=== PATIENT | male | born 1945 | race Caucasian/White ===

== ENCOUNTER → 2016-11-18 | Outpatient (CLI) | payer OTHER | END | disposition home or self-care (01) | LOC: LAB 13:18 | DX: C61 Malignant neoplasm of prostate (principal) ==

== ENCOUNTER → 2017-11-23 | Outpatient (CLI) | payer OTHER ==
[2017-11-23 09:46] LABS: INTERNATIONAL NORM RATIO 1.3 (2.0-3.5)
== END | disposition home or self-care (01) ==
LOC: LAB 08:35
PROVIDERS: Internal Medicine Gastroenterology
DX: Z51.81 Encounter for therapeutic drug level monitoring (principal); Z79.01 Long term (current) use of anticoagulants

== ENCOUNTER 2018-05-16 22:06 | Inpatient (IN) | payer OTHER ==
--- NOTE | ~2018-05-16 | O ---
[place], [place] [facility]AT[id number] #: [id number] ROOM: 531 DOCTOR: DAVID DAVIES MD BIRTHDATE: [birth year] DOS: 05/18/2018 INDICATION FOR PROCEDURE: This is a 73-year-old patient who has presented with lower GI bleed. The patient has been on Coumadin. The patient has been extremely concerned, although his H and H has not dropped much, but has observed blood per stool, has been significant without any gross hemorrhoids. PROCEDURE: Today's procedure part of investigation is colonoscopy. PREMEDICATION: Propofol. SCOPE: Olympus forward-viewing colonoscope 10L video. REPORT: After putting the patient in left lateral position and application of lubricant to the scope, the scope was introduced. Thereafter, under direct visualization, I advanced through the length of colon without difficulty to mid transverse colon. Beyond this level is stool, which is green in color, signifying that there is no right-sided colonic or upper GI bleeding. Scope was withdrawn back to the rectum and reflexed and mucosa carefully washed. There were some clots and evidence of bleeding in the rectum. 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 PLAN AND DISCUSSION: Anucort-HC suppository would be adequate enough. If he is going to be on Coumadin, this is going to be repeated issue regarding bleeding. I have assured him that this is of no significance; however, if he continues with massive bleeding, then he has to be periodically admitted. DAVID DAVIES MD CM:OPRECORD:OPERATIVE NOTE [id number] DAVID DAVIES MD 05/27/18 0731 interface
--- NOTE | ~2018-05-16 | WRIGHTHP ---
[place], [place] PATIENT HISTORY AND PHYSICAL EXAM NAME: BETH GIORDANO [facility] #: [id number] UNIT #: [id number] ROOM: 531 DOCTOR: KHADIJAH HUFF MD BIRTHDATE: [birth year] DOS: 05/17/2018 HISTORY OF PRESENT ILLNESS: The patient is a 73-year-old gentleman with a past medical history of: 1. Morbid obesity. 2. Chronic atrial fibrillation. 3. Type 2 diabetes mellitus. 4. Coronary artery disease and coronary artery bypass grafts. 5. History of sleep apnea. 6. Mixed hyperlipidemia. The patient presented to the Emergency Department with complaints of noticing a lot of blood and fresh blood in the stool. The patient says he has recurrent similar blood in his stools for many years, but not in this big quantity and he generally gets it when he is constipated. The patient was evaluated in the Emergency Department and his hemoglobin was 13.2 as compared to 13.6 yesterday and he was recommended for admission and further management for acute lower GI bleed. Dr. Chaudhari was consulted for management. No recent chest pain, dizziness, fainting episode. No other GI or urinary symptoms. REVIEW OF SYSTEMS: RESPIRATORY: No increasing, shortness of breath or wheezing. GASTROINTESTINAL: The patient noticed fresh blood in the stool. CARDIOVASCULAR: No chest pains or palpitations. FAMILY HISTORY: Noncontributory. SOCIAL HISTORY: Denies smoking cigarettes, alcohol and drug abuse. HOME MEDICATIONS: Insulin, Lipitor, amitriptyline, digoxin, potassium, lisinopril, Coreg, gabapentin, verapamil, glyburide, furosemide, Protonix, Colace, hydrocodone. ALLERGIES: No known drug allergies. PHYSICAL EXAMINATION: GENERAL: Alert and oriented x 3, morbidly obese with a BMI of 47. VITAL SIGNS: Blood pressure 157/61, heart rate 52 beats per minute, breathing 20 times per minute, temperature 98 degrees Fahrenheit. HEENT AND NECK: Extraocular movements are intact. Sclerae are anicteric. Oral mucosa is moist and clean. No obvious facial weakness. Neck is supple without any lymphadenopathy. No thyromegaly. No JVD. No carotid arterial bruits. LUNGS: Clear to auscultation. No wheezing. No rhonchi. CARDIOVASCULAR SYSTEM: Heart rate is regular in rate and rhythm. S1 and S2 normally audible. No significant murmur or any other abnormal cardiac sounds. ABDOMEN: Soft, nontender. No obvious organomegaly. Bowel sounds are present. No obvious herniation. EXTREMITIES: On physical exam, there was also chronic stasis dermatitis and pigmentary changes in both lower extremities and 1+ to 2+ chronic leg and pedal edema. [place], [place] PATIENT HISTORY AND PHYSICAL EXAM [id number] UN[facility] #: [id number] ROOM: 531 DOCTOR: KHADIJAH HUFF MD BIRTHDATE: [birth year] CENTRAL NERVOUS SYSTEM: Alert and oriented x 3. Cranial nerves II-XII are intact. Speech is normal. The patient is able to move all extremities. Normal muscle strength. Deep tendon reflexes are equal on both sides. Plantars were downgoing. LABORATORY DATA: BUN and creatinine 19 and 1.4, albumin level 3, hemoglobin 13.2, normal platelets. IMPRESSION: 1. The patient with acute lower gastrointestinal bleed, possibly hemorrhoidal, but severe. Dr. Chaudhari, the operations consultant has been consulted to evaluate him and hemoglobins will be monitored. 2. Mixed hyperlipidemia, treated with atorvastatin. 3. Type 2 diabetes mellitus. We will monitor blood sugars and treat accordingly. Keep him on no concentrated sweet diet. 4. Chronic atrial fibrillation. The patient's heart rates are controlled with digoxin and the patient anticoagulated with Coumadin. 5. Anticoagulation with Coumadin with INR elevated to 3.2 and acute GI bleed. The patient's Coumadin is going to be put on hold. 6. Benign essential hypertension. Blood pressures are being treated with lisinopril, Coreg and verapamil, which are being continued. 7. Type 2 diabetes mellitus. The patient on glyburide and insulin, which is being continued and blood sugars will be monitored and treated. 8. Morbid obesity. The patient to work with dietary. 9. Mild protein calorie malnutrition. The patient to work with dietary. KHADIJAH HUFF MD CM:HISPHYS:PATIENT HISTORY AND PHYSICAL EXAMINATION 06 36 KHADIJAH HUFF MD 05/17/184 interface
--- NOTE | ~2018-05-16 | PR ---
[place], [place] PROGRESS NOTE NAME: BETH GIORDANO UNIT #: [id number] ROOM: 531 DOCTOR: KHADIJAH HUFF MD BIRTHDATE: [birth year] DOS: 05/19/2018 NO DICTATION KHADIJAH HUFF MD CM:PNTRANS 11 1 KHADIJAH HUFF MD 05/20/18 0501 interface
--- NOTE | ~2018-05-16 | DS ---
[place], [place] DISCHARGE SUMMARY NAME: BETH GIORDANO [facility] #: [id number] UNIT #: [id number] ROOM: 531 DOCTOR: KHADIJAH HUFF MD BIRTHDATE: [birth year] DOS: 05/19/2018 DISCHARGE DIAGNOSES: 1. Acute lower gastrointestinal bleed from radiation proctitis where he had radiation seed placement for treating prostate cancer. 2. The patient is status post colonoscopy. 3. Mixed hyperlipidemia. 4. Type 2 diabetes mellitus. 5. Chronic atrial fibrillation. 6. The patient anticoagulated with Coumadin. 7. Benign essential hypertension. 8. Type 2 diabetes mellitus. 9. Morbid obesity. 10. Mild protein-calorie malnutrition. HOSPITAL COURSE: The patient was admitted and treated for acute lower GI bleed and was found to be bleeding from radiation proctitis where he had prostate radiation seeds placement for prostate cancer in the past. The patient was evaluated with a colonoscopy by Dr. Chaudhari and recommended Anusol-HC suppositories and his hemoglobin has not dropped significantly, so he can be discharged back to home to follow up with his PCP and Dr. Chaudhari as an outpatient. The patient's Coumadin was held back for a few days and will be restarted now. Coumadin in the future will have to be stopped in case the patient starts having clinically significant GI bleeds again. Hemoglobin is stable at 13.1. Type 2 diabetes mellitus. Blood sugars are monitored and treated. Coronary artery disease of nez perce vessels without chest pain. Chronic atrial fibrillation with controlled heart rates. The patient anticoagulated with Coumadin, which is being restarted. The patient to follow with PCP within a week. DISCHARGE MANAGEMENT: Lantus insulin 35 units daily, Lipitor 10 mg a day, amitriptyline 10 mg a day, digoxin 250 mcg daily, Anusol suppositories b.i.d., potassium chloride 10 mEq daily, lisinopril 20 mg a day, gabapentin 600 mg q.i.d., Coreg 6.25 mg b.i.d., verapamil 120 mg b.i.d., furosemide 80 mg a day, glyburide 5 mg b.i.d., Protonix 40 mg b.i.d., Colace 200 mg daily, and Vicodin p.r.n. [place], [place] DISCHARGE SUMMARY NAME: BETH GIORDANO UNIT #: [id number] ROOM: 531 DOCTOR: KHADIJAH HUFF MD BIRTHDATE: [birth year] KHADIJAH HUFF MD CM:ASHWIN [id number] KHADIJAH HUFF MD 05/20/18 0230 interface
--- NOTE | ~2018-05-16 | CON ---
[place], [place] REPORT OF CONSULTATION NAME: BETH GIORDANO UNIT #: [id number] ROOM: 531 DOCTOR: KEKE JANSENDAVID BIRTHDATE: [birth year] DOS: 05/18/2018 GASTROENDOSCOPIC REPORT CHIEF COMPLAINT: Lower gastrointestinal bleed. HISTORY OF PRESENT ILLNESS: The patient is a 73-year-old processed through the Emergency Room and admitted with concerns of GI bleed. The patient has been on Coumadin by history and at the time of admission his H and H was 13 and 40, white blood cell was 5. INR was 3.2. Coumadin has been kept on hold. Glucose 248. INR 1.4. Electrolytes were balanced. Liver function tests normal. CBC differential was repeated in no acute drop; however, the patient concerned about his bleeding status. PAST MEDICAL HISTORY: Associated morbid obesity, coronary artery disease, sleep apnea, stasis dermatitis, venous insufficiency of lower extremity, hyperlipidemia and atrial fibrillation. SOCIAL HISTORY: Nonsmoker, nonalcohol consumer. FAMILY HISTORY: Noncontributory. PAST SURGICAL HISTORY: Triple bypass in 1997. FAMILY HISTORY: Multiple carcinomas, diabetes and coronary artery disease. MEDICATIONS: List has been reviewed. ALLERGIES: No known medications. REVIEW OF SYSTEMS: HEENT: Denies double vision or blurred vision. RESPIRATORY: Denies acute shortness of breath. CARDIOVASCULAR: Denies chest pain. DIGESTIVE SYSTEM: Lower GI bleed. PHYSICAL EXAMINATION: GENERAL: Obese patient. VITAL SIGNS: Stable, no acute distress. HEENT: Head normocephalic, nontraumatic. Mouth and buccal mucosa benign. NECK: Supple, no thyromegaly, no cervical lymphadenopathy. CHEST: Symmetric anatomy, equal expansion. No wheeze, no rhonchi. HEART: Normal sinus rhythm, no gallop, no murmur. ABDOMEN: Obese, large, soft. No hepato-organomegaly. Bowel sounds present. No pulsatile mass. EXTREMITIES: Advanced stasis dermatitis bilaterally, 1+ pedal edema. Scaling of the skin bilaterally is noticed. PLAN AND DISCUSSION: We are going to proceed with a lower endoscopic evaluation before discharge and since this has been his point of concern at the time of [place], [place] REPORT OF CONSULTATION NAME: BETH GIORDANO UNIT #: [id number] ROOM: 531 DOCTOR: KEKE JANSEN,DAVID BIRTHDATE: [birth year] admission. DAVID DAVIES MD CM:CONSTR:REPORT OF CONSULTATION 1457 05/18/18 1546 interface
--- NOTE | ~2018-05-16 | PR ---
[place], [place] PROGRESS NOTE NAME: BETH GIORDANO UNIT #: [id number] ROOM: 531 DOCTOR: REFUGIO JANSEN,KHADIJAH Cornell BIRTHDATE: [birth year] DOS: 05/18/2018 SUBJECTIVE: The patient underwent colonoscopy today, found to have hemorrhoids and started on Anusol-HC suppositories. Dr. Chaudhari is recommending stopping Coumadin because of recurrent GI bleed. Hemoglobin stable at 13.3 today. The patient with radiation proctitis where he had radiation seeds placed for treating prostate cancer. KHADIJAH HUFF MD CM:ISREALTRANS [id number] KHADIJAH HUFF MD 05/19/18 0025 interface
[2018-05-16 22:07] VITALS: BP 112/67
[2018-05-16 23:40] LABS: BASO % 0.7 % (0.0-1.0); EOS # 0.4 10*3/uL (0.0-0.4); EOS % 6.2 % (1.0-4.0); HEMATOCRIT 40.9 % (42.0-52.0); HEMOGLOBIN 13.6 g/dl (14.0-18.0); LYMPH % 16.5 % (27.0-41.0); MEAN CELL VOLUME 94.9 fl (80.0-94.0); MEAN CORPUSCULAR HGB 31.6 pg (27.0-31.0); MEAN CORPUSCULAR HGB CONC 33.3 g/dl (33.0-37.0); MEAN PLATELET VOLUME 9.7 fl (9.6-12.3); MONO # 0.8 10*3/uL (0.1-1.0); MONO % 13.5 % (3.0-9.0); NEUT # 3.7 10*3/uL (2.3-7.9); NEUT % 62.8 % (47.0-73.0); PLATELET COUNT AUTOMATED 181 10*3/uL (130-400); RED BLOOD COUNT 4.31 10*6/uL (4.50-5.90); RED CELL DISTRI WIDTH 12.9 % (0-14.5); WHITE BLOOD COUNT 5.9 10*3/uL (4.8-10.8)
[2018-05-16 23:50] LABS: INTERNATIONAL NORM RATIO 3.2 (2.0-3.5)
[2018-05-16 23:57] LABS: ALKALINE PHOSPHATASE 78 U/L (45-117); BUN 19 mg/dl (7-24); CHLORIDE 102 mmol/L (98-107); CREATININE 1.38 mg/dL (0.70-1.30); POTASSIUM 4.7 mmol/L (3.5-5.1); SGOT/AST 17 IU/L (3-35); SGPT/ALT 21 U/L (12-78); SODIUM 137 mmol/L (136-145); TOTAL PROTEIN 7.1 gm/dL (6.4-8.2)
[2018-05-17 02:40] VITALS: BP 164/76
--- NOTE | 2018-05-17 02:40 | NUR ---
A 73, admitted to 5E, under the services of Dr. REFUGIO JANSEN,KHADIJAH Cornell with a diagnosis of RECTAL BLEED. Chief complaint is RECTAL BLEEDING. Patient arrived via ambulatory from ER. Monitor applied. Initial assessment completed. Vital signs taken and recorded. DR. REFUGIO JANSEN,KHADIJAH Cornell notified of admission to the unit. Orders received. See assessment for past medical history, medications and allergies. Patient and/or family oriented to unit. visitation policy reviewed. Clothing/patient valuable form completed. ARMANI BONE
[2018-05-17] MEDS ORDERED: NORCO 7.5-3251 EACH PO (04:02)
[2018-05-17] MEDS ORDERED: LASIX80 MG PO (04:03)
[2018-05-17] MEDS ORDERED: GLYBURIDE5 MG PO (04:03)
[2018-05-17] MEDS ORDERED: DIGOX250 MCG PO (04:03)
[2018-05-17] MEDS ORDERED: COREG6.25 MG PO (04:04)
[2018-05-17] MEDS ORDERED: VERAPAMIL HCL120 MG PO (04:04)
[2018-05-17] MEDS ORDERED: PROTONIX40 MG PO (04:05)
[2018-05-17] MEDS ORDERED: NEURONTIN600 MG PO (04:06)
[2018-05-17] MEDS ORDERED: JANTOVEN4 M1 PO (04:06)
[2018-05-17] MEDS ORDERED: COLACE100 MG PO (04:07)
[2018-05-17] MEDS ORDERED: LISINOPRIL20 MG PO (04:07)
[2018-05-17] MEDS ORDERED: AMITRIPTYLINE H10 M1 PO (04:08)
[2018-05-17] MEDS ORDERED: POTASSIUM CHLO10 MEQ PO (04:08)
[2018-05-17] MEDS ORDERED: LOVASTATIN40 MG PO (04:09)
--- NOTE | 2018-05-17 06:15 | NUR ---
DR. DAVIES NOTIFIED OF CONSULT FOR PATIENT FOR RECTAL BLEED. NEW ORDER FOR ANUSOL HC SUPPOSITORY Q DAY AND REPEAT H&H TOMORROW. MAY FEED PATIENT.
[2018-05-17 06:27] LABS: BASO # 0.1 10*3/uL (0.0-0.1); BASO % 1.1 % (0.0-1.0); EOS # 0.4 10*3/uL (0.0-0.4); EOS % 6.9 % (1.0-4.0); HEMATOCRIT 40.7 % (42.0-52.0); HEMOGLOBIN 13.2 g/dl (14.0-18.0); LYMPH # 1.3 10*3/uL (1.3-4.4); LYMPH % 23.4 % (27.0-41.0); MEAN CELL VOLUME 94.9 fl (80.0-94.0); MEAN CORPUSCULAR HGB 30.8 pg (27.0-31.0); MEAN CORPUSCULAR HGB CONC 32.4 g/dl (33.0-37.0); MONO # 0.8 10*3/uL (0.1-1.0); MONO % 14.8 % (3.0-9.0); NEUT # 3.1 10*3/uL (2.3-7.9); NEUT % 53.6 % (47.0-73.0); PLATELET COUNT AUTOMATED 197 10*3/uL (130-400); RED BLOOD COUNT 4.29 10*6/uL (4.50-5.90); RED CELL DISTRI WIDTH 13.1 % (0-14.5); WHITE BLOOD COUNT 5.7 10*3/uL (4.8-10.8)
[2018-05-17 08:00] VITALS: BP 156/82
[2018-05-17] MEDS ORDERED: LEVEMIR100 UNIT/1 SQ ×2 (11:30→11:32)
[2018-05-17 12:00] VITALS: BP 133/51
[2018-05-17 16:00] VITALS: BP 157/61
[2018-05-17 20:00] VITALS: BP 174/77
[2018-05-18] VITALS (9 sets, daily range): BP systolic 128–168; BP diastolic 56–74
--- NOTE | 2018-05-18 01:22 | NUR ---
NORCO GIVEN PER REQUEST FOR C/O LT KNEE, NECK AND BACK PAIN. BED IN LOW, LOCKED POS, CALL LIGTH IN REACH. WILL MONITOR MEDICATION EFFECTIVENESS.
[2018-05-18 06:40] LABS: BASO # 0.1 10*3/uL (0.0-0.1); BASO % 1.2 % (0.0-1.0); EOS # 0.4 10*3/uL (0.0-0.4); EOS % 7.1 % (1.0-4.0); HEMATOCRIT 40.2 % (42.0-52.0); HEMOGLOBIN 13.3 g/dl (14.0-18.0); LYMPH # 1.3 10*3/uL (1.3-4.4); LYMPH % 26.5 % (27.0-41.0); MEAN CELL VOLUME 95.3 fl (80.0-94.0); MEAN CORPUSCULAR HGB 31.5 pg (27.0-31.0); MEAN CORPUSCULAR HGB CONC 33.1 g/dl (33.0-37.0); MEAN PLATELET VOLUME 9.9 fl (9.6-12.3); MONO # 0.7 10*3/uL (0.1-1.0); MONO % 13.9 % (3.0-9.0); NEUT # 2.6 10*3/uL (2.3-7.9); NEUT % 51.3 % (47.0-73.0); PLATELET COUNT AUTOMATED 198 10*3/uL (130-400); RED BLOOD COUNT 4.22 10*6/uL (4.50-5.90); RED CELL DISTRI WIDTH 12.9 % (0-14.5); WHITE BLOOD COUNT 5.1 10*3/uL (4.8-10.8)
--- NOTE | 2018-05-18 07:42 | NUR ---
INFORMED OF MORNING LAB. STATED COLONSCOPT TODAY, ENEMA AT 1000
--- NOTE | 2018-05-18 09:00 | NUR ---
[employer] in to talk to patient. Patient states lives at home with his daughter. There are 9-10 steps in the home. Physician: Dr. Doris Baig Pharmacy: [facility] Home health services: none Patient's level of ADLs: INDEPENDENT Patient has working utilities: yes DME: c-pap Follow-up physician's appointment after d/c: he prefers to make his own follow up appt after discharge Does patient want to access PORTAL?: no Discharge plan discussed with patient. He lives at home with his daughter. He is independent in his ADLs and ambulation. Discussed home health care services and he denies any home needs at this time. When medically stable he will be discharged to home. ELBA LANDRUM
--- NOTE | 2018-05-18 10:15 | NUR ---
TAP WATER ENEMA COMPLETED AT THIS TIME, BM ARE CLEARS LIQUID WITH HINT OF RED. PATIENT TOLERATED WELL.
--- NOTE | 2018-05-18 15:09 | NUR ---
STATED TO CONTINUE ANUCORT HC SUPP DAILY, AND PLACE REGULAR DIET.
--- NOTE | 2018-05-18 19:26 | NUR ---
PATIENT RESTING IN RECLINER WITH VISITOR AT BED SIDE. DENIES ANY NEEDS OR COMPLAINTS AT THIS TIME. CALL LIGHT IS WITHIN REACH. ENCOURAGED TO USE CALL LIGHT FOR NEEDS. WILL MONITOR.
--- NOTE | 2018-05-18 21:34 | NUR ---
SPOKE WITH DR HUFF REGARDING BGM OF 347. NO SLIDING SCALE. PER DR HUFF ORDER SLIDING SCALE QID AND COVER WITH REGULAR INSULIN. NO OTHER ORDERS AT THIS TIME.
[2018-05-19] VITALS: BP 149/74
--- NOTE | 2018-05-19 02:23 | NUR ---
PATIENT RESTING IN BED WITH CPAP IN PLACE. RESPIRATIONS ARE EASY AND REGULAR. NO DISTRESS IS NOTED. CALL LIGHT IS WITHIN REACH. WILL MONITOR.
[2018-05-19 07:03] LABS: BASO % 0.8 % (0.0-1.0); EOS # 0.4 10*3/uL (0.0-0.4); EOS % 7.2 % (1.0-4.0); HEMATOCRIT 38.8 % (42.0-52.0); HEMOGLOBIN 13.1 g/dl (14.0-18.0); LYMPH # 1.7 10*3/uL (1.3-4.4); LYMPH % 32.9 % (27.0-41.0); MEAN CELL VOLUME 93.9 fl (80.0-94.0); MEAN CORPUSCULAR HGB 31.7 pg (27.0-31.0); MEAN CORPUSCULAR HGB CONC 33.8 g/dl (33.0-37.0); MEAN PLATELET VOLUME 9.6 fl (9.6-12.3); MONO # 0.6 10*3/uL (0.1-1.0); MONO % 10.9 % (3.0-9.0); NEUT # 2.5 10*3/uL (2.3-7.9); NEUT % 47.8 % (47.0-73.0); PLATELET COUNT AUTOMATED 189 10*3/uL (130-400); RED BLOOD COUNT 4.13 10*6/uL (4.50-5.90); RED CELL DISTRI WIDTH 12.9 % (0-14.5); WHITE BLOOD COUNT 5.2 10*3/uL (4.8-10.8)
--- NOTE | 2018-05-19 07:20 | NUR ---
BEDSIDE REPORT OBTAINED FROM QUINTEN. PATIENT APPEARS TO BE ASLEEP, EYES CLOSED. NO S&S OF DISTRESS NOTED, RESP ARE ERND ON ROOM AIR. BED IS LOCKED IN LOWEST POSITION, CALL LIGHT LEFT WITHIN REACH.
[2018-05-19 08:00] VITALS: BP 118/62
[2018-05-19 12:00] VITALS: BP 116/56
[2018-05-19 16:00] VITALS: BP 139/59
[2018-05-19 20:00] VITALS: BP 142/55
--- NOTE | 2018-05-19 20:00 | NUR ---
SITTING IN RECLINER WITH NO ACUTE DISTRESS NOTED. RESPIRATIONS EASY. LUNGS DIMINISHED, CLEAR. ROOM AIR, DENIES SOB. ABD SOFT WITH NORMOACTIVE BOWEL SOUNDS, DENIES ACTIVE BLEED. BLE NOTED TO BE DISCOLORED AND EDEMATOUS. CALL LIGHT WITHIN REACH. NO VOICED COMPLAINTS
--- NOTE | 2018-05-19 20:40 | NUR ---
24 HR chart check completed.
--- NOTE | 2018-05-19 20:45 | NUR ---
DR HUFF HERE TO SEE PATIENT AND DISCUSS PLAN OF CARE
[2018-05-19] MEDS ORDERED: Anusol Hc,Anuco25 MG R (21:14)
--- NOTE | 2018-05-19 21:40 | NUR ---
spoke with dr lopez regarding d/c. ok for d/c from dr fuentes standpoint
--- NOTE | 2018-05-19 22:05 | NUR ---
DR HUFF INFORMED DR KEKE GUTIERREZ WITH D/C
--- NOTE | 2018-05-19 22:40 | NUR ---
Discharge instructions reviewed with patient/family. Patient receptive and verbalizes understanding. Written instructions given to patient/family. PATIENT OFFERED WC FOR D/C DECLINED. AMBULATED OFF FLOOR. NASH BECERRA
== END 2018-05-19 22:40 | disposition home or self-care (01) | DRG 394 ==
LOC: ED 22:06 → EDHOLD 05-17 01:33 → 5E 05-17 01:33
PROVIDERS: Emergency Medicine; ADMIT Internal Medicine
PROC: 0DJD8ZZ Inspection of Lower Intestinal Tract, Via Natural or Artificial Opening Endoscopic (ICD-10-PCS; principal; 2018-05-18)
DX: K62.7 Radiation proctitis (principal); E44.1 Mild protein-calorie malnutrition; Z68.42 Body mass index [BMI] 45.0-49.9, adult; C61 Malignant neoplasm of prostate; E78.2 Mixed hyperlipidemia; I48.2 Chronic atrial fibrillation; I10 Essential (primary) hypertension; G47.30 Sleep apnea, unspecified; I25.10 Atherosclerotic heart disease of native coronary artery without angina pectoris; K64.9 Unspecified hemorrhoids; E11.9 Type 2 diabetes mellitus without complications; E66.01 Morbid (severe) obesity due to excess calories; Z79.01 Long term (current) use of anticoagulants; Z83.3 Family history of diabetes mellitus; Z82.49 Family history of ischemic heart disease and other diseases of the circulatory system; Z80.9 Family history of malignant neoplasm, unspecified; Z95.1 Presence of aortocoronary bypass graft

== ENCOUNTER → 2020-07-31 | Outpatient (CLI) | payer OTHER ==
[~2020-07-31] MED LIST: AMITRIPTYLINE H10 M1 PO; Anusol Hc,Anuco25 MG R; COLACE100 MG PO; COREG12.5 M1 PO; DIGOX250 MCG PO; GLYBURIDE5 MG PO; JANTOVEN4 M1 PO; JARDIANCE25 MG PO; LASIX80 MG PO; LEVEMIR100 UNIT/1 SQ; LISINOPRIL40 MG PO; LOVASTATIN40 MG PO; NEURONTIN600 MG PO; NORCO 7.5-3251 EACH PO; POTASSIUM CHLO10 MEQ PO; PROTONIX40 MG PO; ROPINIROLE HCL2 MG PO; TRAZODONE50 MG PO; VERAPAMIL HCL120 MG PO
== END | disposition home or self-care (01) ==
LOC: CARD
PROVIDERS: ATTEND Internal Medicine
DX: I08.0 Rheumatic disorders of both mitral and aortic valves (principal); I48.20 Chronic atrial fibrillation, unspecified

== ENCOUNTER → 2020-08-24 | Outpatient (CLI) | payer OTHER | END | disposition home or self-care (01) | LOC: CARD 00:02 | PROVIDERS: ATTEND Internal Medicine | DX: I51.7 Cardiomegaly (principal); I48.91 Unspecified atrial fibrillation; I45.10 Unspecified right bundle-branch block; I51.89 Other ill-defined heart diseases ==

== ENCOUNTER → 2020-12-19 | Outpatient (CLI) | payer OTHER | END | disposition home or self-care (01) | LOC: US 12-12 13:30 | PROVIDERS: ATTEND Internal Medicine | DX: I73.9 Peripheral vascular disease, unspecified (principal) ==

== ENCOUNTER → 2021-02-12 | Outpatient (CLI) | payer OTHER | END | disposition home or self-care (01) | LOC: COVID19 17:04 | PROVIDERS: ATTEND Internal Medicine | DX: Z11.52 Encounter for screening for COVID-19 (principal) ==

== ENCOUNTER → 2021-10-26 | Outpatient (CLI) | payer OTHER | END | disposition home or self-care (01) | LOC: US 08:54 → MRI 10:00 | PROVIDERS: ATTEND Internal Medicine | DX: I65.29 Occlusion and stenosis of unspecified carotid artery (principal); R42 Dizziness and giddiness; R41.3 Other amnesia ==

== ENCOUNTER 2022-05-15 18:13 | Emergency (ER) | payer OTHER ==
[~2022-05-15] VITALS: Ht 185.4 cm; Wt 125.2 kg
[~2022-05-15 18:13] MED LIST changes: +ARICEPT5 M1 PO; +Bactroban Oint22 GM T; +CLOPIDOGREL75 MG PO; +LEVOFLOXACIN500 MG PO; +SINEMET 10-1001 EACH PO
[2022-05-15 19:51] VITALS: BP 134/83
[2022-05-15] MEDS ORDERED: LEVEMIR100 UNIT/1 SC (19:55)
[2022-05-15] MEDS ORDERED: Lasix80 MG PO (19:56)
[2022-05-15 21:01] LABS: BASO # 0.1 10*3/uL (0.0-0.1); BASO % 0.7 % (0.0-1.0); EOS # 0.2 10*3/uL (0.0-0.4); EOS % 2.4 % (1.0-4.0); HEMATOCRIT 44.6 % (42.0-52.0); LYMPH # 1.2 10*3/uL (1.3-4.4); MEAN CELL VOLUME 92.3 fl (80.0-94.0); MEAN CORPUSCULAR HGB 31.1 pg (27.0-31.0); MEAN CORPUSCULAR HGB CONC 33.6 g/dl (33.0-37.0); MEAN PLATELET VOLUME 9.7 fl (9.6-12.3); MONO # 0.7 10*3/uL (0.1-1.0); NEUT # 5.1 10*3/uL (2.3-7.9); NEUT % 70.6 % (47.0-73.0); PLATELET COUNT AUTOMATED 202 10*3/uL (130-400); RED BLOOD COUNT 4.83 10*6/uL (4.50-5.90); WHITE BLOOD COUNT 7.2 10*3/uL (4.8-10.8)
[2022-05-15 21:20] LABS: ALKALINE PHOSPHATASE 69 U/L (46-116); BUN 26 mg/dl (9-23); CHLORIDE 96 mmol/L (98-107); CREATININE 1.35 mg/dL (0.70-1.30); POTASSIUM 4.2 mmol/L (3.4-5.1); SGPT/ALT 15 U/L (10-49); TOTAL PROTEIN 7.1 gm/dL (6.0-8.0)
== END 2022-05-15 22:10 | disposition home or self-care (01) ==
LOC: ED 18:13
PROVIDERS: Physician Assistant
DX: S90.821A Blister (nonthermal), right foot, initial encounter (principal); E11.9 Type 2 diabetes mellitus without complications; Z79.899 Other long term (current) drug therapy; Z90.49 Acquired absence of other specified parts of digestive tract; X58.XXXA Exposure to other specified factors, initial encounter; Y93.89 Activity, other specified; Y92.89 Other specified places as the place of occurrence of the external cause; Y99.8 Other external cause status

== ENCOUNTER → 2022-06-19 | Day surgery (SDC) | payer OTHER ==
[~2022-06-19] VITALS: Ht 165.1 cm; Wt 123.8 kg
[~2022-06-19] MED LIST changes: +AMOX-CLAV 875-1 EACH PO; +APRESOLINE25 MG PO; +LEVEMIR100 UNIT/1 SC; +Lasix80 MG PO
[2022-06-19 08:10] VITALS: BP 174/60
[2022-06-19 09:06] VITALS: BP 159/61
[2022-06-19 09:21] VITALS: BP 156/63
[2022-06-19 09:36] VITALS: BP 149/59
== END | disposition home or self-care (01) ==
LOC: SDC 05-17 11:00
PROVIDERS: ATTEND Ophthalmology
DX: E11.36 Type 2 diabetes mellitus with diabetic cataract (principal); H25.811 Combined forms of age-related cataract, right eye; I11.0 Hypertensive heart disease with heart failure; I50.9 Heart failure, unspecified; K21.9 Gastro-esophageal reflux disease without esophagitis; I48.91 Unspecified atrial fibrillation; I25.2 Old myocardial infarction; I25.10 Atherosclerotic heart disease of native coronary artery without angina pectoris; Z85.46 Personal history of malignant neoplasm of prostate; Z95.1 Presence of aortocoronary bypass graft; Z87.891 Personal history of nicotine dependence; Z98.890 Other specified postprocedural states

== ENCOUNTER → 2022-09-18 | Day surgery (SDC) | payer OTHER ==
[~2022-09-18] VITALS: Ht 165.1 cm; Wt 123.8 kg
[2022-09-18 09:59] VITALS: BP 168/64
[2022-09-18 11:35] VITALS: BP 137/55
[2022-09-18 11:50] VITALS: BP 111/61
[2022-09-18 12:04] VITALS: BP 148/83
== END | disposition home or self-care (01) ==
LOC: SDC 09-13 13:15
PROVIDERS: ATTEND Ophthalmology
DX: E11.36 Type 2 diabetes mellitus with diabetic cataract (principal); H25.812 Combined forms of age-related cataract, left eye; I11.0 Hypertensive heart disease with heart failure; I50.9 Heart failure, unspecified; K21.9 Gastro-esophageal reflux disease without esophagitis; Z95.1 Presence of aortocoronary bypass graft; Z85.46 Personal history of malignant neoplasm of prostate; I25.2 Old myocardial infarction; I25.10 Atherosclerotic heart disease of native coronary artery without angina pectoris; I48.91 Unspecified atrial fibrillation; Z87.891 Personal history of nicotine dependence; Z79.899 Other long term (current) drug therapy; Z98.890 Other specified postprocedural states

== ENCOUNTER → 2023-02-17 | Outpatient (CLI) | payer OTHER | END | disposition home or self-care (01) | LOC: CARD 09:05 | PROVIDERS: ATTEND Internal Medicine | DX: I08.2 Rheumatic disorders of both aortic and tricuspid valves (principal) ==

== ENCOUNTER → 2023-10-02 | Outpatient (CLI) | payer OTHER ==
[2023-10-02 11:52] LABS: BASO # 0.1 10*3/uL (0.0-0.1); BASO % 1.2 % (0.0-1.0); EOS # 0.2 10*3/uL (0.0-0.4); EOS % 2.7 % (1.0-4.0); HEMATOCRIT 43.2 % (42.0-52.0); LYMPH # 1.2 10*3/uL (1.3-4.4); LYMPH % 17.5 % (27.0-41.0); MEAN CELL VOLUME 93.7 fl (80.0-94.0); MEAN CORPUSCULAR HGB 31.5 pg (27.0-31.0); MEAN CORPUSCULAR HGB CONC 33.6 g/dl (33.0-37.0); MEAN PLATELET VOLUME 9.8 fl (9.6-12.3); MONO # 0.6 10*3/uL (0.1-1.0); MONO % 9.1 % (3.0-9.0); NEUT # 4.7 10*3/uL (2.3-7.9); NEUT % 69.4 % (47.0-73.0); PLATELET COUNT AUTOMATED 248 10*3/uL (130-400); RED BLOOD COUNT 4.61 10*6/uL (4.50-5.90); RED CELL DISTRI WIDTH 11.8 % (0-14.5); WHITE BLOOD COUNT 6.7 10*3/uL (4.8-10.8)
[2023-10-02 12:29] LABS: ALKALINE PHOSPHATASE 89 U/L (46-116); BUN 13 mg/dl (9-23); CHLORIDE 98 mmol/L (98-107); CHOLESTEROL 130 mg/dL (<200); FREE T4 1.13 ng/dl (0.89-1.76); LDL CHOLESTEROL 64 mg/dL (9-159); POTASSIUM 4.1 mmol/L (3.4-5.1); SGPT/ALT 14 U/L (5-49); TRIGLYCERIDES 194 mg/dl (<150)
[2023-10-02 12:31] LABS: VITAMIN D, 25-HYDROXY 63.7 ng/mL (30-100)
== END | disposition home or self-care (01) ==
LOC: LAB 11:26
PROVIDERS: ATTEND Internal Medicine
DX: Z13.220 Encounter for screening for lipoid disorders (principal); Z13.228 Encounter for screening for other metabolic disorders; Z13.29 Encounter for screening for other suspected endocrine disorder; Z13.6 Encounter for screening for cardiovascular disorders; Z13.89 Encounter for screening for other disorder; Z13.9 Encounter for screening, unspecified; I10 Essential (primary) hypertension; E11.43 Type 2 diabetes mellitus with diabetic autonomic (poly)neuropathy; L03.115 Cellulitis of right lower limb

== ENCOUNTER 2023-10-16 15:34 | Emergency (ER) | payer OTHER ==
[~2023-10-16] VITALS: Ht 175.2 cm; Wt 130.2 kg
[2023-10-16 15:48] VITALS: BP 133/70
[2023-10-16 16:14] LABS: BASO # 0.1 10*3/uL (0.0-0.1); BASO % 0.8 % (0.0-1.0); EOS # 0.2 10*3/uL (0.0-0.4); EOS % 2.6 % (1.0-4.0); HEMATOCRIT 42.4 % (42.0-52.0); LYMPH # 1.3 10*3/uL (1.3-4.4); LYMPH % 19.6 % (27.0-41.0); MEAN CORPUSCULAR HGB 31.4 pg (27.0-31.0); MEAN CORPUSCULAR HGB CONC 33.7 g/dl (33.0-37.0); MONO # 0.6 10*3/uL (0.1-1.0); MONO % 8.6 % (3.0-9.0); NEUT # 4.4 10*3/uL (2.3-7.9); NEUT % 68.2 % (47.0-73.0); PLATELET COUNT AUTOMATED 213 10*3/uL (130-400); RED BLOOD COUNT 4.56 10*6/uL (4.50-5.90); RED CELL DISTRI WIDTH 11.9 % (0-14.5); WHITE BLOOD COUNT 6.5 10*3/uL (4.8-10.8)
[2023-10-16] MEDS ORDERED: IOHEXOL 300 MG/ML 100 ML VIAL IV ONE (16:30)
[2023-10-16 16:40] LABS: BUN 12 mg/dl (9-23); CHLORIDE 95 mmol/L (98-107); POTASSIUM 3.5 mmol/L (3.4-5.1)
[2023-10-16] MEDS ORDERED: INSULIN REGULAR, HUMAN 1 UNIT/0.01 ML SC ONE (16:50)
[2023-10-16] MEDS ORDERED: VIBRAMYCIN100 MG PO (18:25)
== END 2023-10-16 18:27 | disposition home or self-care (01) ==
LOC: ED 15:34
PROVIDERS: Physician Assistant Medical
DX: K62.6 Ulcer of anus and rectum (principal); E11.9 Type 2 diabetes mellitus without complications; Z79.4 Long term (current) use of insulin; I11.0 Hypertensive heart disease with heart failure; I50.9 Heart failure, unspecified; I25.2 Old myocardial infarction; K21.9 Gastro-esophageal reflux disease without esophagitis; I48.91 Unspecified atrial fibrillation; Z90.49 Acquired absence of other specified parts of digestive tract; Z98.890 Other specified postprocedural states

== ENCOUNTER 2023-10-27 12:22 | Emergency (ER) | payer OTHER ==
[~2023-10-27] VITALS: Ht 170.1 cm; Wt 109.8 kg
[~2023-10-27 12:22] MED LIST changes: +VIBRAMYCIN100 MG PO
[2023-10-27 12:42] VITALS: BP 150/72
[2023-10-27] MEDS ORDERED: VIBRAMYCIN100 MG PO (16:03)
== END 2023-10-27 16:50 | disposition home or self-care (01) ==
LOC: ED 12:22
DX: K62.6 Ulcer of anus and rectum (principal); E11.9 Type 2 diabetes mellitus without complications; Z79.4 Long term (current) use of insulin; I11.0 Hypertensive heart disease with heart failure; I50.9 Heart failure, unspecified; I25.2 Old myocardial infarction; I48.91 Unspecified atrial fibrillation; K21.9 Gastro-esophageal reflux disease without esophagitis; Z98.890 Other specified postprocedural states; Z90.49 Acquired absence of other specified parts of digestive tract; W19.XXXA Unspecified fall, initial encounter

== ENCOUNTER → 2023-12-19 | Outpatient (CLI) | payer OTHER | END | disposition home or self-care (01) | LOC: MRI 12-12 10:00 | PROVIDERS: ATTEND Internal Medicine | DX: G93.89 Other specified disorders of brain (principal); R42 Dizziness and giddiness ==

== ENCOUNTER → 2024-01-23 | Outpatient (CLI) | payer OTHER ==
[~2024-01-23] MED LIST changes: +Technetium Tc 99M Medronate 1 KIT KIT IV SCH
== END | disposition home or self-care (01) ==
LOC: NM 01-21 10:00
PROVIDERS: ATTEND Internal Medicine
DX: M54.50 Low back pain, unspecified (principal); M47.819 Spondylosis without myelopathy or radiculopathy, site unspecified; M17.0 Bilateral primary osteoarthritis of knee

== ENCOUNTER → 2024-02-09 | Outpatient (CLI) | payer OTHER ==
[~2024-02-09] MED LIST changes: -Technetium Tc 99M Medronate 1 KIT KIT IV SCH
== END | disposition home or self-care (01) ==
LOC: WOUNDCARE 03:58
PROVIDERS: ATTEND Nurse Practitioner Family
DX: E11.621 Type 2 diabetes mellitus with foot ulcer (principal); L97.511 Non-pressure chronic ulcer of other part of right foot limited to breakdown of skin; L97.521 Non-pressure chronic ulcer of other part of left foot limited to breakdown of skin; E11.51 Type 2 diabetes mellitus with diabetic peripheral angiopathy without gangrene; I87.2 Venous insufficiency (chronic) (peripheral); I10 Essential (primary) hypertension; F17.210 Nicotine dependence, cigarettes, uncomplicated; Z90.49 Acquired absence of other specified parts of digestive tract

== ENCOUNTER 2024-02-14 17:10 | Emergency (ER) | payer OTHER ==
[~2024-02-14] VITALS: Ht 167.6 cm; Wt 95.3 kg
[2024-02-14 17:18] VITALS: BP 138/62
[2024-02-14] MEDS ORDERED: SODIUM CHLORIDE 0.9% 1,000 ML IV ONE (17:20)
[2024-02-14] MEDS ORDERED: MORPHINE Sulfate 2 MG/ML SYR IV ONE (17:20)
[2024-02-14] MEDS ORDERED: Ondansetron Hydrochloride 4 MG/2 ML VIAL IV ONE ×2 (17:20→18:10)
[2024-02-14 17:32] LABS: BASO # 0.1 10*3/uL (0.0-0.1); BASO % 0.6 % (0.0-1.0); EOS # 0.1 10*3/uL (0.0-0.4); EOS % 0.6 % (1.0-4.0); HEMATOCRIT 41.1 % (42.0-52.0); LYMPH # 1.5 10*3/uL (1.3-4.4); LYMPH % 12.7 % (27.0-41.0); MEAN CELL VOLUME 91.5 fl (80.0-94.0); MEAN CORPUSCULAR HGB 30.7 pg (27.0-31.0); MEAN CORPUSCULAR HGB CONC 33.6 g/dl (33.0-37.0); MEAN PLATELET VOLUME 9.6 fl (9.6-12.3); MONO % 8.2 % (3.0-9.0); NEUT # 9.4 10*3/uL (2.3-7.9); NEUT % 77.4 % (47.0-73.0); PLATELET COUNT AUTOMATED 219 10*3/uL (130-400); RED BLOOD COUNT 4.49 10*6/uL (4.50-5.90); RED CELL DISTRI WIDTH 12.5 % (0-14.5); WHITE BLOOD COUNT 12.1 10*3/uL (4.8-10.8)
[2024-02-14 17:46] LABS: BUN 17 mg/dl (9-23); CHLORIDE 94 mmol/L (98-107); POTASSIUM 3.7 mmol/L (3.4-5.1)
[2024-02-14] MEDS ORDERED: HYDROmorphONE Hydrochloride 1 MG/ML SYR IV ONE (18:10)
[2024-02-14] MEDS ORDERED: TRAMADOL HCL50 MG PO (18:10)
== END 2024-02-14 19:15 | disposition home or self-care (01) ==
LOC: ED 17:10
PROVIDERS: Emergency Medicine
DX: E11.40 Type 2 diabetes mellitus with diabetic neuropathy, unspecified (principal); E78.5 Hyperlipidemia, unspecified; I25.2 Old myocardial infarction; I50.9 Heart failure, unspecified; I11.0 Hypertensive heart disease with heart failure; I48.91 Unspecified atrial fibrillation; K21.9 Gastro-esophageal reflux disease without esophagitis; Z90.49 Acquired absence of other specified parts of digestive tract; Z98.890 Other specified postprocedural states

== ENCOUNTER → 2024-02-24 | Outpatient (CLI) | payer OTHER ==
[~2024-02-24] MED LIST changes: +TRAMADOL HCL50 MG PO
== END | disposition home or self-care (01) ==
LOC: WOUNDCARE 00:59
PROVIDERS: ATTEND Nurse Practitioner Family
DX: E11.621 Type 2 diabetes mellitus with foot ulcer (principal); I83.025 Varicose veins of left lower extremity with ulcer other part of foot; I83.015 Varicose veins of right lower extremity with ulcer other part of foot; L97.821 Non-pressure chronic ulcer of other part of left lower leg limited to breakdown of skin; L97.811 Non-pressure chronic ulcer of other part of right lower leg limited to breakdown of skin; S80.811A Abrasion, right lower leg, initial encounter; R60.9 Edema, unspecified; E11.42 Type 2 diabetes mellitus with diabetic polyneuropathy; I10 Essential (primary) hypertension; I73.9 Peripheral vascular disease, unspecified; I87.2 Venous insufficiency (chronic) (peripheral); Z90.49 Acquired absence of other specified parts of digestive tract; X58.XXXA Exposure to other specified factors, initial encounter; Y93.89 Activity, other specified; Y92.89 Other specified places as the place of occurrence of the external cause; Y99.8 Other external cause status

== ENCOUNTER → 2024-03-05 | Outpatient (CLI) | payer OTHER | END | disposition home or self-care (01) | LOC: WOUNDCARE 03:28 | PROVIDERS: ATTEND Nurse Practitioner Family | DX: E11.621 Type 2 diabetes mellitus with foot ulcer (principal); I83.015 Varicose veins of right lower extremity with ulcer other part of foot; L97.511 Non-pressure chronic ulcer of other part of right foot limited to breakdown of skin; I83.025 Varicose veins of left lower extremity with ulcer other part of foot; L97.521 Non-pressure chronic ulcer of other part of left foot limited to breakdown of skin; S80.811D Abrasion, right lower leg, subsequent encounter; E11.42 Type 2 diabetes mellitus with diabetic polyneuropathy; E11.51 Type 2 diabetes mellitus with diabetic peripheral angiopathy without gangrene; I10 Essential (primary) hypertension; I87.2 Venous insufficiency (chronic) (peripheral); R60.9 Edema, unspecified; F17.290 Nicotine dependence, other tobacco product, uncomplicated; Z90.49 Acquired absence of other specified parts of digestive tract; X58.XXXD Exposure to other specified factors, subsequent encounter ==

== ENCOUNTER 2024-03-28 06:04 | Observation (INO) | payer OTHER ==
[~2024-03-28] VITALS: Ht 167.6 cm; Wt 118.5 kg
[~2024-03-28 06:04] MED LIST changes: -LISINOPRIL40 MG PO; +ZESTRIL10 MG PO
[2024-03-28 06:12] VITALS: BP 178/77
[2024-03-28] MEDS ORDERED: ELIQUIS5 M1 PO (06:13)
[2024-03-28] MEDS ORDERED: NOVOLOG MI100 UNIT/1 SQ (06:26)
[2024-03-28] MEDS ORDERED: APRESOLINE25 MG PO (06:27)
[2024-03-28] MEDS ORDERED: OXYCODONE-ACET1 EACH PO (06:30)
[2024-03-28] MEDS ORDERED: OZEMPIC0.25 MG/03 SQ (06:31)
[2024-03-28] MEDS ORDERED: Mysoline50 MG PO (06:32)
[2024-03-28] MEDS ORDERED: CARVEDILOL12.5 MG PO (06:34)
[2024-03-28] MEDS ORDERED: HUMALOG100 UNIT/1 SC (06:35)
[2024-03-28 06:40] LABS: BASO # 0.1 10*3/uL (0.0-0.1); BASO % 0.8 % (0.0-1.0); EOS # 0.3 10*3/uL (0.0-0.4); HEMATOCRIT 41.6 % (42.0-52.0); MEAN CELL VOLUME 90.6 fl (80.0-94.0); MEAN CORPUSCULAR HGB 30.5 pg (27.0-31.0); MEAN CORPUSCULAR HGB CONC 33.7 g/dl (33.0-37.0); MEAN PLATELET VOLUME 9.9 fl (9.6-12.3); MONO # 0.7 10*3/uL (0.1-1.0); MONO % 7.8 % (3.0-9.0); NEUT # 6.9 10*3/uL (2.3-7.9); NEUT % 73.7 % (47.0-73.0); PLATELET COUNT AUTOMATED 215 10*3/uL (130-400); RED BLOOD COUNT 4.59 10*6/uL (4.50-5.90); RED CELL DISTRI WIDTH 12.5 % (0-14.5); WHITE BLOOD COUNT 9.4 10*3/uL (4.8-10.8)
[2024-03-28] MEDS ORDERED: Pantoprazole Sodium 40 MG in SODIUM CHLORIDE 0.9% 50 ML IV SCH (06:50)
[2024-03-28] MEDS ORDERED: SUCRALFATE 1 GM TAB PO ONE (06:50)
[2024-03-28 07:02] LABS: BUN 13 mg/dl (9-23); CHLORIDE 95 mmol/L (98-107); POTASSIUM 3.6 mmol/L (3.4-5.1)
[2024-03-28 08:00] VITALS: BP 135/67
[2024-03-28] MEDS ORDERED: SODIUM CHLORIDE 0.9% 1,000 ML IV SCH (08:30)
[2024-03-28] MEDS ORDERED: Acetaminophen/Oxycodone Hydr 7.5 MG/325 MG TABLET PO SCH (10:00)
[2024-03-28] MEDS ORDERED: GABAPENTIN 600 MG TAB PO SCH (10:00)
[2024-03-28] MEDS ORDERED: PRIMIDONE 50 MG TAB PO SCH (10:00)
[2024-03-28] MEDS ORDERED: LISINOPRIL 10 MG TAB PO SCH (10:00)
[2024-03-28] MEDS ORDERED: Pantoprazole Sodium 40 MG TAB PO SCH ×2 (10:00)
[2024-03-28] MEDS ORDERED: hydrALAZINE hydrochloride 25 MG TAB PO SCH (10:00)
[2024-03-28] MEDS ORDERED: POTASSIUM CHLORIDE 10 MEQ TAB PO SCH (10:00)
[2024-03-28] MEDS ORDERED: EMPAGLIFLOZIN 25 MG TABLET PO SCH (10:00)
[2024-03-28] MEDS ORDERED: HYDROCORTISONE ACETATE 25 MG SUPP R SCH (10:00)
[2024-03-28] MEDS ORDERED: INSULIN NPH HUM/REG INSULIN HM 1 UNIT/0.01 ML SC SCH (10:00)
[2024-03-28 11:55] VITALS: BP 147/63
[2024-03-28] MEDS ORDERED: DIGOXIN 125 MCG TAB PO SCH (14:00)
[2024-03-28] MEDS ORDERED: glyBURIDE 5 MG TAB PO SCH (16:30)
[2024-03-28 18:07] VITALS: BP 130/60
[2024-03-28 22:00] VITALS: BP 153/76
[2024-03-28] MEDS ORDERED: SIMVASTATIN 20 MG TAB PO SCH (22:00)
[2024-03-28] MEDS ORDERED: Ropinirole Hydrochloride 1 MG TAB PO SCH (22:00)
[2024-03-29] VITALS: BP 153/76
[2024-03-29 06:19] LABS: BASO # 0.1 10*3/uL (0.0-0.1); BASO % 0.9 % (0.0-1.0); EOS # 0.4 10*3/uL (0.0-0.4); EOS % 4.7 % (1.0-4.0); MEAN CELL VOLUME 89.7 fl (80.0-94.0); MEAN CORPUSCULAR HGB CONC 34.5 g/dl (33.0-37.0); MEAN PLATELET VOLUME 9.9 fl (9.6-12.3); MONO # 0.9 10*3/uL (0.1-1.0); MONO % 10.7 % (3.0-9.0); NEUT # 5.3 10*3/uL (2.3-7.9); NEUT % 60.9 % (47.0-73.0); PLATELET COUNT AUTOMATED 239 10*3/uL (130-400); RED BLOOD COUNT 4.68 10*6/uL (4.50-5.90); RED CELL DISTRI WIDTH 12.8 % (0-14.5); WHITE BLOOD COUNT 8.8 10*3/uL (4.8-10.8)
[2024-03-29 06:28] LABS: ALKALINE PHOSPHATASE 77 U/L (46-116); BUN 11 mg/dl (9-23); CHLORIDE 99 mmol/L (98-107); POTASSIUM 3.7 mmol/L (3.4-5.1); SGPT/ALT 12 U/L (5-49); TOTAL PROTEIN 6.8 gm/dL (6.0-8.0)
[2024-03-29 08:00] VITALS: BP 158/78
[2024-03-29] MEDS ORDERED: Anusol Hc,Anuco25 MG R (08:08)
[2024-03-29 12:00] VITALS: BP 147/59
== END 2024-03-29 14:09 | disposition home or self-care (01) ==
LOC: ED 06:04 → 4E 06:50 → EDHOLD 06:50 → 4E 06:50
PROVIDERS: Internal Medicine; ADMIT Internal Medicine; ATTEND Internal Medicine
DX: K62.5 Hemorrhage of anus and rectum (principal); K64.8 Other hemorrhoids; K92.2 Gastrointestinal hemorrhage, unspecified; I48.20 Chronic atrial fibrillation, unspecified; E11.9 Type 2 diabetes mellitus without complications; E87.1 Hypo-osmolality and hyponatremia; M48.061 Spinal stenosis, lumbar region without neurogenic claudication; I11.0 Hypertensive heart disease with heart failure; I50.22 Chronic systolic (congestive) heart failure; Z79.01 Long term (current) use of anticoagulants; Z79.4 Long term (current) use of insulin; Z79.899 Other long term (current) drug therapy

== ENCOUNTER 2024-04-01 01:33 | Emergency (ER) | payer OTHER ==
[~2024-04-01 01:33] MED LIST changes: +CARVEDILOL12.5 MG PO; +ELIQUIS5 M1 PO; +HUMALOG100 UNIT/1 SC; +Mysoline50 MG PO; +NOVOLOG MI100 UNIT/1 SQ; +OXYCODONE-ACET1 EACH PO; +OZEMPIC0.25 MG/03 SQ
[2024-04-01 01:50] VITALS: BP 123/95
[2024-04-01] MEDS ORDERED: MEPERIDINE HYDROCHLORIDE 25 MG/1 ML VIAL IM ONE (02:00)
[2024-04-01] MEDS ORDERED: Tdap Vaccine 0.5 ML SYR (Adult Vaccine) IM ONE (02:00)
[2024-04-01] MEDS ORDERED: Promethazine Hydrochloride 25 MG/ML VIAL IM ONE (02:00)
== END 2024-04-01 02:50 | disposition home or self-care (01) ==
LOC: ED 01:33
DX: S61.412A Laceration without foreign body of left hand, initial encounter (principal); E11.40 Type 2 diabetes mellitus with diabetic neuropathy, unspecified; Z79.4 Long term (current) use of insulin; I25.2 Old myocardial infarction; I50.9 Heart failure, unspecified; I11.0 Hypertensive heart disease with heart failure; I48.91 Unspecified atrial fibrillation; K21.9 Gastro-esophageal reflux disease without esophagitis; M79.605 Pain in left leg; M79.604 Pain in right leg; Z90.49 Acquired absence of other specified parts of digestive tract; Z98.890 Other specified postprocedural states; W01.0XXA Fall on same level from slipping, tripping and stumbling without subsequent striking against object, initial encounter; Y93.89 Activity, other specified; Y92.009 Unspecified place in unspecified non-institutional (private) residence as the place of occurrence of the external cause; Y99.8 Other external cause status

== ENCOUNTER → 2024-05-21 | Outpatient (CLI) | payer OTHER | END | disposition home or self-care (01) | LOC: WOUNDCARE 00:09 | PROVIDERS: ATTEND Nurse Practitioner Family | DX: E11.621 Type 2 diabetes mellitus with foot ulcer (principal); L97.521 Non-pressure chronic ulcer of other part of left foot limited to breakdown of skin; I83.025 Varicose veins of left lower extremity with ulcer other part of foot; I87.2 Venous insufficiency (chronic) (peripheral); I83.891 Varicose veins of right lower extremity with other complications; L89.620 Pressure ulcer of left heel, unstageable; L03.116 Cellulitis of left lower limb; L84 Corns and callosities; E11.42 Type 2 diabetes mellitus with diabetic polyneuropathy; I10 Essential (primary) hypertension; R60.9 Edema, unspecified; F17.200 Nicotine dependence, unspecified, uncomplicated; Z90.49 Acquired absence of other specified parts of digestive tract; Z98.890 Other specified postprocedural states ==

== ENCOUNTER → 2024-05-26 | Outpatient (CLI) | payer OTHER | END | disposition home or self-care (01) | LOC: WOUNDCARE 01:24 | PROVIDERS: ATTEND Nurse Practitioner Family | DX: E11.621 Type 2 diabetes mellitus with foot ulcer (principal); I83.025 Varicose veins of left lower extremity with ulcer other part of foot; L97.521 Non-pressure chronic ulcer of other part of left foot limited to breakdown of skin; L89.620 Pressure ulcer of left heel, unstageable; L03.116 Cellulitis of left lower limb; L84 Corns and callosities; E11.42 Type 2 diabetes mellitus with diabetic polyneuropathy; I10 Essential (primary) hypertension; I83.891 Varicose veins of right lower extremity with other complications; I87.2 Venous insufficiency (chronic) (peripheral); R60.9 Edema, unspecified; F17.200 Nicotine dependence, unspecified, uncomplicated; Z90.49 Acquired absence of other specified parts of digestive tract; Z98.890 Other specified postprocedural states; Z79.899 Other long term (current) drug therapy ==

== ENCOUNTER → 2024-06-01 | Outpatient (CLI) | payer OTHER | END | disposition home or self-care (01) | LOC: WOUNDCARE 03:31 | PROVIDERS: ATTEND Nurse Practitioner Family | DX: E11.621 Type 2 diabetes mellitus with foot ulcer (principal); I83.025 Varicose veins of left lower extremity with ulcer other part of foot; L97.521 Non-pressure chronic ulcer of other part of left foot limited to breakdown of skin; I87.2 Venous insufficiency (chronic) (peripheral); I83.891 Varicose veins of right lower extremity with other complications; L89.620 Pressure ulcer of left heel, unstageable; L03.116 Cellulitis of left lower limb; L84 Corns and callosities; E11.42 Type 2 diabetes mellitus with diabetic polyneuropathy; I10 Essential (primary) hypertension; R60.9 Edema, unspecified; F17.290 Nicotine dependence, other tobacco product, uncomplicated; Z90.49 Acquired absence of other specified parts of digestive tract; Z98.890 Other specified postprocedural states; Z79.899 Other long term (current) drug therapy ==

== ENCOUNTER → 2024-06-09 | Outpatient (CLI) | payer OTHER | END | disposition home or self-care (01) | LOC: WOUNDCARE 02:32 | PROVIDERS: ATTEND Nurse Practitioner Family | DX: L89.620 Pressure ulcer of left heel, unstageable (principal); E11.621 Type 2 diabetes mellitus with foot ulcer; I83.025 Varicose veins of left lower extremity with ulcer other part of foot; L97.521 Non-pressure chronic ulcer of other part of left foot limited to breakdown of skin; I87.2 Venous insufficiency (chronic) (peripheral); I83.891 Varicose veins of right lower extremity with other complications; L03.116 Cellulitis of left lower limb; I10 Essential (primary) hypertension; G62.9 Polyneuropathy, unspecified; R60.9 Edema, unspecified; F17.290 Nicotine dependence, other tobacco product, uncomplicated; Z90.49 Acquired absence of other specified parts of digestive tract; Z98.890 Other specified postprocedural states; Z79.899 Other long term (current) drug therapy ==

== ENCOUNTER → 2024-06-15 | Outpatient (CLI) | payer OTHER | END | disposition home or self-care (01) | LOC: WOUNDCARE 02:14 | PROVIDERS: ATTEND Nurse Practitioner Family | DX: L89.620 Pressure ulcer of left heel, unstageable (principal); I83.893 Varicose veins of bilateral lower extremities with other complications; I87.2 Venous insufficiency (chronic) (peripheral); L03.116 Cellulitis of left lower limb; R60.9 Edema, unspecified; I10 Essential (primary) hypertension; G62.9 Polyneuropathy, unspecified; E11.9 Type 2 diabetes mellitus without complications; Z95.1 Presence of aortocoronary bypass graft; Z90.49 Acquired absence of other specified parts of digestive tract; Z87.891 Personal history of nicotine dependence; Z79.899 Other long term (current) drug therapy ==

== ENCOUNTER → 2024-07-08 | Outpatient (CLI) | payer OTHER | END | disposition home or self-care (01) | LOC: WOUNDCARE 13:01 | PROVIDERS: ATTEND Nurse Practitioner Family | DX: L89.623 Pressure ulcer of left heel, stage 3 (principal); L03.116 Cellulitis of left lower limb; R60.9 Edema, unspecified; I87.2 Venous insufficiency (chronic) (peripheral); I83.893 Varicose veins of bilateral lower extremities with other complications; E11.42 Type 2 diabetes mellitus with diabetic polyneuropathy; I10 Essential (primary) hypertension; Z90.49 Acquired absence of other specified parts of digestive tract; Z98.890 Other specified postprocedural states; Z79.899 Other long term (current) drug therapy ==

== ENCOUNTER → 2024-07-15 | Outpatient (CLI) | payer OTHER | END | disposition home or self-care (01) | LOC: WOUNDCARE 02:16 | PROVIDERS: ATTEND Nurse Practitioner Family | DX: L89.623 Pressure ulcer of left heel, stage 3 (principal); L03.116 Cellulitis of left lower limb; R60.9 Edema, unspecified; I87.2 Venous insufficiency (chronic) (peripheral); I83.893 Varicose veins of bilateral lower extremities with other complications; E11.42 Type 2 diabetes mellitus with diabetic polyneuropathy; I10 Essential (primary) hypertension; F17.200 Nicotine dependence, unspecified, uncomplicated; Z90.49 Acquired absence of other specified parts of digestive tract; Z98.890 Other specified postprocedural states; Z79.899 Other long term (current) drug therapy ==

== ENCOUNTER → 2024-07-23 | Outpatient (CLI) | payer OTHER | END | disposition home or self-care (01) | LOC: WOUNDCARE 01:47 | PROVIDERS: ATTEND Nurse Practitioner Family | DX: L89.623 Pressure ulcer of left heel, stage 3 (principal); R60.9 Edema, unspecified; L03.116 Cellulitis of left lower limb; I83.893 Varicose veins of bilateral lower extremities with other complications; E11.42 Type 2 diabetes mellitus with diabetic polyneuropathy; I10 Essential (primary) hypertension; F17.290 Nicotine dependence, other tobacco product, uncomplicated; Z90.49 Acquired absence of other specified parts of digestive tract; Z95.1 Presence of aortocoronary bypass graft; Z79.899 Other long term (current) drug therapy ==

== ENCOUNTER → 2024-07-30 | Outpatient (CLI) | payer OTHER | END | disposition home or self-care (01) | LOC: WOUNDCARE 00:46 | PROVIDERS: ATTEND Nurse Practitioner Family | DX: L89.623 Pressure ulcer of left heel, stage 3 (principal); L03.116 Cellulitis of left lower limb; R60.9 Edema, unspecified; I87.2 Venous insufficiency (chronic) (peripheral); I83.893 Varicose veins of bilateral lower extremities with other complications; I10 Essential (primary) hypertension; E11.42 Type 2 diabetes mellitus with diabetic polyneuropathy; F17.290 Nicotine dependence, other tobacco product, uncomplicated; Z90.49 Acquired absence of other specified parts of digestive tract; Z95.1 Presence of aortocoronary bypass graft; Z98.890 Other specified postprocedural states; Z79.899 Other long term (current) drug therapy ==

== ENCOUNTER → 2024-08-05 | Outpatient (CLI) | payer OTHER | END | disposition home or self-care (01) | LOC: WOUNDCARE 03:14 | PROVIDERS: ATTEND Nurse Practitioner Family | DX: L89.623 Pressure ulcer of left heel, stage 3 (principal); L03.116 Cellulitis of left lower limb; E11.9 Type 2 diabetes mellitus without complications; I87.2 Venous insufficiency (chronic) (peripheral); I83.893 Varicose veins of bilateral lower extremities with other complications; I10 Essential (primary) hypertension; G62.9 Polyneuropathy, unspecified; R60.9 Edema, unspecified; F17.290 Nicotine dependence, other tobacco product, uncomplicated; Z90.49 Acquired absence of other specified parts of digestive tract; Z98.890 Other specified postprocedural states; Z79.899 Other long term (current) drug therapy ==

== ENCOUNTER → 2024-08-20 | Outpatient (CLI) | payer OTHER | END | disposition home or self-care (01) | LOC: WOUNDCARE 02:04 | PROVIDERS: ATTEND Nurse Practitioner Family | DX: L89.623 Pressure ulcer of left heel, stage 3 (principal); L03.116 Cellulitis of left lower limb; R60.9 Edema, unspecified; E11.42 Type 2 diabetes mellitus with diabetic polyneuropathy; I87.2 Venous insufficiency (chronic) (peripheral); I10 Essential (primary) hypertension; I83.893 Varicose veins of bilateral lower extremities with other complications; F17.290 Nicotine dependence, other tobacco product, uncomplicated; Z90.49 Acquired absence of other specified parts of digestive tract; Z95.1 Presence of aortocoronary bypass graft; Z98.890 Other specified postprocedural states; Z79.899 Other long term (current) drug therapy ==

== ENCOUNTER → 2024-08-27 | Outpatient (CLI) | payer OTHER | END | disposition home or self-care (01) | LOC: WOUNDCARE 01:20 | PROVIDERS: ATTEND Nurse Practitioner Family | DX: L89.623 Pressure ulcer of left heel, stage 3 (principal); L03.116 Cellulitis of left lower limb; I87.2 Venous insufficiency (chronic) (peripheral); I83.893 Varicose veins of bilateral lower extremities with other complications; E11.9 Type 2 diabetes mellitus without complications; I10 Essential (primary) hypertension; G62.9 Polyneuropathy, unspecified; R60.9 Edema, unspecified; F17.200 Nicotine dependence, unspecified, uncomplicated; Z90.49 Acquired absence of other specified parts of digestive tract; Z98.890 Other specified postprocedural states; Z79.899 Other long term (current) drug therapy ==

== ENCOUNTER → 2024-09-10 | Outpatient (CLI) | payer OTHER | LOC: WOUNDCARE 01:01 | PROVIDERS: ATTEND Nurse Practitioner Family | DX: L89.623 Pressure ulcer of left heel, stage 3 (principal); L03.116 Cellulitis of left lower limb; R60.9 Edema, unspecified; I87.2 Venous insufficiency (chronic) (peripheral); I83.893 Varicose veins of bilateral lower extremities with other complications; I10 Essential (primary) hypertension; E11.42 Type 2 diabetes mellitus with diabetic polyneuropathy; F17.290 Nicotine dependence, other tobacco product, uncomplicated; Z90.49 Acquired absence of other specified parts of digestive tract; Z95.1 Presence of aortocoronary bypass graft; Z98.890 Other specified postprocedural states; Z79.899 Other long term (current) drug therapy ==

== ENCOUNTER → 2024-09-24 | Outpatient (CLI) | payer OTHER | END | disposition home or self-care (01) | LOC: WOUNDCARE 00:33 | PROVIDERS: ATTEND Nurse Practitioner Family | DX: L89.623 Pressure ulcer of left heel, stage 3 (principal); E11.621 Type 2 diabetes mellitus with foot ulcer; I83.024 Varicose veins of left lower extremity with ulcer of heel and midfoot; L97.421 Non-pressure chronic ulcer of left heel and midfoot limited to breakdown of skin; I83.891 Varicose veins of right lower extremity with other complications; E11.42 Type 2 diabetes mellitus with diabetic polyneuropathy; I10 Essential (primary) hypertension; L03.116 Cellulitis of left lower limb; R60.9 Edema, unspecified; F17.200 Nicotine dependence, unspecified, uncomplicated; Z90.49 Acquired absence of other specified parts of digestive tract; Z98.890 Other specified postprocedural states; Z79.899 Other long term (current) drug therapy ==

== ENCOUNTER → 2024-10-07 | Outpatient (CLI) | payer OTHER | END | disposition home or self-care (01) | LOC: WOUNDCARE 04:03 | PROVIDERS: ATTEND Nurse Practitioner Family | DX: L89.623 Pressure ulcer of left heel, stage 3 (principal); L03.116 Cellulitis of left lower limb; I87.2 Venous insufficiency (chronic) (peripheral); I83.893 Varicose veins of bilateral lower extremities with other complications; G62.9 Polyneuropathy, unspecified; R60.9 Edema, unspecified; E11.9 Type 2 diabetes mellitus without complications; I10 Essential (primary) hypertension; F17.200 Nicotine dependence, unspecified, uncomplicated; Z90.49 Acquired absence of other specified parts of digestive tract; Z98.890 Other specified postprocedural states; Z79.899 Other long term (current) drug therapy ==

== ENCOUNTER → 2024-12-16 | Outpatient (CLI) | payer OTHER | END | disposition home or self-care (01) | LOC: WOUNDCARE 01:32 | PROVIDERS: ATTEND Nurse Practitioner Family | DX: L89.623 Pressure ulcer of left heel, stage 3 (principal); R60.9 Edema, unspecified; E11.42 Type 2 diabetes mellitus with diabetic polyneuropathy; I83.893 Varicose veins of bilateral lower extremities with other complications; I87.2 Venous insufficiency (chronic) (peripheral); I10 Essential (primary) hypertension; L03.116 Cellulitis of left lower limb; F17.298 Nicotine dependence, other tobacco product, with other nicotine-induced disorders; Z90.49 Acquired absence of other specified parts of digestive tract; Z98.890 Other specified postprocedural states; Z79.899 Other long term (current) drug therapy ==

== ENCOUNTER → 2024-12-31 | Outpatient (CLI) | payer OTHER ==
[~2024-12-31] MED LIST changes: +DULOXETINE HCL60 MG PO; +ENTRESTO 24 MG1 EACH PO; +MIDODRINE HCL2.5 MG PO; +RYBELSUS7 MG PO
== END | disposition home or self-care (01) ==
LOC: WOUNDCARE 03:39
PROVIDERS: ATTEND Nurse Practitioner Family
DX: L89.623 Pressure ulcer of left heel, stage 3 (principal); S81.811A Laceration without foreign body, right lower leg, initial encounter; S81.812A Laceration without foreign body, left lower leg, initial encounter; L03.116 Cellulitis of left lower limb; R60.9 Edema, unspecified; I87.2 Venous insufficiency (chronic) (peripheral); I83.893 Varicose veins of bilateral lower extremities with other complications; E11.42 Type 2 diabetes mellitus with diabetic polyneuropathy; I10 Essential (primary) hypertension; F17.210 Nicotine dependence, cigarettes, uncomplicated; Z90.49 Acquired absence of other specified parts of digestive tract; Z98.890 Other specified postprocedural states; Z79.899 Other long term (current) drug therapy; X58.XXXA Exposure to other specified factors, initial encounter; Y93.89 Activity, other specified; Y92.89 Other specified places as the place of occurrence of the external cause; Y99.8 Other external cause status

== ENCOUNTER 2025-01-05 03:57 | Emergency (ER) | payer OTHER ==
[~2025-01-05] VITALS: Ht 180.3 cm; Wt 116.1 kg
[~2025-01-05 03:57] MED LIST changes: -DULOXETINE HCL60 MG PO; -ENTRESTO 24 MG1 EACH PO; -MIDODRINE HCL2.5 MG PO; -RYBELSUS7 MG PO
[2025-01-05 04:07] VITALS: BP 167/83
[2025-01-05] MEDS ORDERED: Lidocaine Hydrochloride 10 ML SYR UR ONE (04:15)
[2025-01-05] MEDS ORDERED: ENTRESTO 24 MG1 EACH PO (04:53)
[2025-01-05] MEDS ORDERED: OXYCODONE-ACET1 EACH PO (04:55)
[2025-01-05] MEDS ORDERED: RYBELSUS7 MG PO (04:57)
[2025-01-05] MEDS ORDERED: MIDODRINE HCL2.5 MG PO (04:58)
[2025-01-05] MEDS ORDERED: DULOXETINE HCL60 MG PO (04:59)
[2025-01-05] MEDS ORDERED: HYDROmorphONE Hydrochloride 0.5 MG/0.5 ML SYRINGE IV ONE ×4 (05:00→06:15)
[2025-01-05] MEDS ORDERED: Ondansetron Hydrochloride 4 MG/2 ML VIAL IV ONE (05:00)
[2025-01-05] MEDS ORDERED: INSULIN REGULAR, HUMAN 1 UNIT/0.01 ML IV ONE (05:15)
== END 2025-01-05 06:35 | disposition home or self-care (01) ==
LOC: ED 03:57
DX: N47.1 Phimosis (principal); R33.9 Retention of urine, unspecified; Z85.46 Personal history of malignant neoplasm of prostate; Z79.899 Other long term (current) drug therapy; Z79.4 Long term (current) use of insulin; Z90.49 Acquired absence of other specified parts of digestive tract

== ENCOUNTER 2025-01-19 21:48 | Emergency (ER) | payer OTHER ==
[~2025-01-19] VITALS: Ht 170.1 cm; Wt 115.7 kg
[~2025-01-19 21:48] MED LIST changes: +DULOXETINE HCL60 MG PO; +ENTRESTO 24 MG1 EACH PO; +MIDODRINE HCL2.5 MG PO; +RYBELSUS7 MG PO
[2025-01-19] MEDS ORDERED: ARTHRITIS PAIN150 G1 T (22:03)
[2025-01-19] MEDS ORDERED: VANCOCIN125 MG PO (22:05)
[2025-01-19 22:06] VITALS: BP 156/85
[2025-01-19 22:31] LABS: BILIRUBIN Negative (Negative); BLOOD 3+ (Negative); CLARITY Cloudy (Clear); COLOR Red (Yellow); KETONE Negative (Negative); LEUKO ESTERASE 2+ (Negative); NITRITE Negative (Negative); PH 6.0 (4.5-8.0); SPECIFIC GRAVITY 1.015 (1.001-1.030); UROBILINOGEN 0.2 E.U./dl (0.0-1.0)
[2025-01-19 22:44] LABS: RBC TNTC rbc/hpf (0-2); WBC 21-30 wbc/hpf (0-5)
[2025-01-19 23:03] LABS: BASO # 0.1 10*3/uL (0.0-0.1); BASO % 0.9 % (0.0-1.0); EOS # 0.5 10*3/uL (0.0-0.4); EOS % 6.3 % (1.0-4.0); MEAN CELL VOLUME 92.7 fl (80.0-94.0); MEAN CORPUSCULAR HGB 30.4 pg (27.0-31.0); MEAN PLATELET VOLUME 9.5 fl (9.6-12.3); MONO # 0.7 10*3/uL (0.1-1.0); MONO % 8.9 % (3.0-9.0); NEUT # 5.7 10*3/uL (2.3-7.9); NEUT % 69.4 % (47.0-73.0); NUCLEATED RED BLOOD CELL 0.0 % (0.0-0.0); NUCLEATED RED BLOOD CELL 0.0 10*3/uL (0.0-0.0); PLATELET COUNT AUTOMATED 255 10*3/uL (130-400); RED CELL DISTRI WIDTH 13.1 % (0-14.5)
== END 2025-01-19 23:57 | disposition home or self-care (01) ==
LOC: ED 21:48
PROVIDERS: Internal Medicine
DX: R33.9 Retention of urine, unspecified (principal); R10.30 Lower abdominal pain, unspecified; R31.9 Hematuria, unspecified; D64.9 Anemia, unspecified; Z85.46 Personal history of malignant neoplasm of prostate; Z79.899 Other long term (current) drug therapy; Z79.4 Long term (current) use of insulin; Z90.49 Acquired absence of other specified parts of digestive tract

== ENCOUNTER 2025-02-25 02:21 | Emergency (ER) | payer OTHER ==
[~2025-02-25] VITALS: Wt 114.5 kg
[~2025-02-25 02:21] MED LIST changes: +ARTHRITIS PAIN150 G1 T; +LEVOFLOXACIN250 M2 PO; +VANCOCIN125 MG PO
[2025-02-25 02:27] VITALS: BP 138/95
[2025-02-25 02:53] LABS: BASO # 0.1 10*3/uL (0.0-0.1); BASO % 1.0 % (0.0-1.0); EOS # 0.4 10*3/uL (0.0-0.4); EOS % 3.8 % (1.0-4.0); MEAN CELL VOLUME 91.1 fl (80.0-94.0); MEAN CORPUSCULAR HGB 28.6 pg (27.0-31.0); MEAN PLATELET VOLUME 9.5 fl (9.6-12.3); MONO # 0.8 10*3/uL (0.1-1.0); MONO % 8.2 % (3.0-9.0); NEUT # 6.8 10*3/uL (2.3-7.9); NEUT % 73.3 % (47.0-73.0); NUCLEATED RED BLOOD CELL 0.0 % (0.0-0.0); NUCLEATED RED BLOOD CELL 0.0 10*3/uL (0.0-0.0); PLATELET COUNT AUTOMATED 285 10*3/uL (130-400); RED CELL DISTRI WIDTH 13.1 % (0-14.5)
[2025-02-25 02:59] LABS: BILIRUBIN Negative (Negative); BLOOD Negative (Negative); CLARITY Clear (Clear); COLOR Yellow (Yellow); KETONE Negative (Negative); LEUKO ESTERASE Negative (Negative); NITRITE Negative (Negative); PH 6.5 (4.5-8.0); SPECIFIC GRAVITY 1.020 (1.001-1.030); UROBILINOGEN 0.2 E.U./dl (0.0-1.0)
[2025-02-25 03:12] LABS: BUN 16 mg/dl (9-23)
== END 2025-02-25 03:39 | disposition home or self-care (01) ==
LOC: ED 02:21
PROVIDERS: Internal Medicine
DX: R33.9 Retention of urine, unspecified (principal); E11.65 Type 2 diabetes mellitus with hyperglycemia; N47.1 Phimosis; Z79.899 Other long term (current) drug therapy; Z79.84 Long term (current) use of oral hypoglycemic drugs; Z79.4 Long term (current) use of insulin; Z90.49 Acquired absence of other specified parts of digestive tract; Z98.61 Coronary angioplasty status; Z85.46 Personal history of malignant neoplasm of prostate

== ENCOUNTER → 2025-03-01 | Outpatient (CLI) | payer OTHER | END | disposition home or self-care (01) | LOC: WOUNDCARE 03:23 | PROVIDERS: ATTEND Nurse Practitioner Family | DX: E11.621 Type 2 diabetes mellitus with foot ulcer (principal); L97.422 Non-pressure chronic ulcer of left heel and midfoot with fat layer exposed; I83.024 Varicose veins of left lower extremity with ulcer of heel and midfoot; I83.891 Varicose veins of right lower extremity with other complications; R60.9 Edema, unspecified; E11.42 Type 2 diabetes mellitus with diabetic polyneuropathy; I10 Essential (primary) hypertension; Z90.49 Acquired absence of other specified parts of digestive tract ==

== ENCOUNTER → 2025-03-11 | Outpatient (CLI) | payer OTHER | END | disposition home or self-care (01) | LOC: WOUNDCARE 00:23 | PROVIDERS: ATTEND Nurse Practitioner Family | DX: E11.621 Type 2 diabetes mellitus with foot ulcer (principal); I83.024 Varicose veins of left lower extremity with ulcer of heel and midfoot; L97.421 Non-pressure chronic ulcer of left heel and midfoot limited to breakdown of skin; E11.42 Type 2 diabetes mellitus with diabetic polyneuropathy; I83.891 Varicose veins of right lower extremity with other complications; I10 Essential (primary) hypertension; I87.2 Venous insufficiency (chronic) (peripheral); R60.9 Edema, unspecified; Z90.49 Acquired absence of other specified parts of digestive tract ==

== ENCOUNTER 2025-03-20 21:49 | Inpatient (IN) | payer OTHER ==
[~2025-03-20] VITALS: Ht 182.9 cm; Wt 108.5 kg
[2025-03-20 22:20] VITALS: BP 123/79
[2025-03-20] MEDS ORDERED: MORPHINE Sulfate 5 MG IV PRN (22:30)
[2025-03-20] MEDS ORDERED: diazePAM 10 MG/2 ML SYR IV PRN (22:35)
[2025-03-20] MEDS ORDERED: ATROPINE SULFATE 1% 2 ML BOTTLE SL PRN (22:35)
[2025-03-20] MEDS ORDERED: SODIUM CHLORIDE 0.9% 500 ML IV SCH (22:40)
[2025-03-21] VITALS: BP 142/109
[2025-03-21 08:00] VITALS: BP 121/57
[2025-03-21] MEDS ORDERED: ACETAMINOPHEN 650 MG SUPP R PRN ×2 (08:35→19:56)
[2025-03-21] MEDS ORDERED: Menthol/Zinc Oxide 4 GM THIN T SCH (10:00)
[2025-03-21 12:00] VITALS: BP 114/64
[2025-03-21 16:00] VITALS: BP 120/66
== END 2025-03-22 04:40 | DRG 872 ==
LOC: 5E 21:49
PROVIDERS: ADMIT Internal Medicine; ATTEND Internal Medicine
DX: A41.9 Sepsis, unspecified organism (principal); R65.20 Severe sepsis without septic shock; Z66 Do not resuscitate; Z51.5 Encounter for palliative care